=== PATIENT | male | born 1985 | race African-American/Black ===

== ENCOUNTER 2018-01-02 17:20 | Emergency (ER) | payer SELFPAY ==
[~2018-01-02] VITALS: Ht 170.2 cm; Wt 78.0 kg
[2018-01-02 18:00] VITALS: BP 125/50
[2018-01-02 18:31] LABS: BILIRUBIN,URINE NEGATIVE (NEG); CLARITY,URINE CLEAR; COLOR,URINE YELLOW; NITRITE,URINE NEGATIVE (NEG); PROTEIN,URINE NEGATIVE (NEG-TRACE)
[2018-01-02 18:43] LABS: BACTERIA,URINE 0 /HPF (0-FEW); RBC,URINE 0 /HPF (0-2)
[2018-01-02] MEDS ORDERED: cefTRIAXone IM 250 MG VIAL IM ONE (19:00)
[2018-01-02] MEDS ORDERED: AZITHROMYCIN 250 MG TABLET. PO ONE (19:00)
[2018-01-02] MEDS ORDERED: CIPR500T94 PO (19:17)
--- NOTE | 2018-01-02 19:18 | PHYS DOC ---
Past Medical History Past Medical History: No Pertinent History Past Surgical History: No Surgical History Alcohol Use: Occasionally Drug Use: Marijuana Adult General Chief Complaint Chief Complaint: ABDOMINAL PAIN HPI HPI Patient is a 32 year old Male who presents with sore began having mid lower Ivan pain and burning with urination. He states he does have some concerns for STDs. He denies any penile discharge. Patient denies any blood in his urine , fever, back pain. He denies any nausea or vomiting. Rates his pain a 5 out of 10. States it at times it feels like a stabbing pain in his lower abdomen. He has no known drug allergies. States he has had a urinary tract infection before and this is what it felt like. Review of Systems Review of Systems Constitutional: Denies fever or chills [] Eyes: Denies change in visual acuity, redness, or eye pain [] HENT: Denies nasal congestion or sore throat [] Respiratory: Denies cough or shortness of breath [] Cardiovascular: No additional information not addressed in HPI [] GI: Low mid abdominal pain, denies nausea, vomiting, bloody stools or diarrhea [ ] : dysuria. Denies hematuria [] Musculoskeletal: Denies back pain or joint pain [] Integument: Denies rash or skin lesions [] Neurologic: Denies headache, focal weakness or sensory changes [] All other systems were reviewed and found to be within normal limits, except as documented in this note. Current Medications Current Medications Current Medications Medications (Trade) Dose Ordered Sig/Jaison Start Time Stop Time Status Last Admin Dose Admin Azithromycin (Zithromax) 1,000 mg 1X ONCE 01/02/18 19:00 01/02/18 19:01 DC 01/02/18 19:02 1,000 MG Ceftriaxone Sodium (Rocephin Im) 250 mg 1X ONCE 01/02/18 19:00 01/02/18 19:01 DC 01/02/18 19:03 250 MG Allergies Allergies Allergies Coded Allergies Type Severity Reaction Last Updated Verified No Known Drug Allergies 01/02/18 No Physical Exam Physical Exam Constitutional: Well developed, well nourished, no acute distress, non-toxic appearance. [] HENT: Normocephalic, atraumatic, bilateral external ears normal, oropharynx moist, no oral exudates, nose normal. [] Eyes: PERRLA, EOMI, conjunctiva normal, no discharge. [] Neck: Normal range of motion, no tenderness, supple, no stridor. [] Cardiovascular:Heart rate regular rhythm, no murmur [] Lungs & Thorax: Bilateral breath sounds clear to auscultation [] Abdomen: Bowel sounds normal, soft, low mid tenderness, no masses, no pulsatile masses. [] Skin: Warm, dry, no erythema, no rash. [] Back: No tenderness, no CVA tenderness. [] Extremities: No tenderness, no cyanosis, no clubbing, ROM intact, no edema. [] Neurologic: Alert and oriented X 3, normal motor function, normal sensory function, no focal deficits noted. [] Psychologic: Affect normal, judgement normal, mood normal. [] Current Patient Data Vital Signs Vital Signs Date Time Temp Pulse Resp B/P (MAP) Pulse Ox O2 Delivery O2 Flow Rate FiO2 01/02/18 18:00 97.9 71 16 125/50 (75) 98 Room Air 97.9 Lab Values Laboratory Tests Test 01/02/18 18:19 Urine Collection Type Unknown Urine Color Yellow Urine Clarity Clear Urine pH 6.0 Urine Specific Ney 1.025 Urine Protein Negative mg/dL (NEG-TRACE) Urine Glucose (UA) Negative mg/dL (NEG) Urine Ketones (Stick) Negative mg/dL (NEG) Urine Blood Negative (NEG) Urine Nitrite Negative (NEG) Urine Bilirubin Negative (NEG) Urine Urobilinogen Dipstick 1.0 mg/dL (0.2 mg/dL) Urine Leukocyte Esterase Trace (NEG) Urine RBC 0 /HPF (0-2) Urine WBC 1-4 /HPF (0-4) Urine Bacteria 0 /HPF (0-FEW) Urine Mucus Slight /LPF EKG EKG [] Radiology/Procedures Radiology/Procedures [] Course & Med Decision Making Course & Med Decision Making Patient is a 32 year old Male who presents with sore began having mid lower Ivan pain and burning with urination. He states he does have some concerns for STDs. He denies any penile discharge. Patient denies any blood in his urine , fever, back pain. He denies any nausea or vomiting. Rates his pain a 5 out of 10. States it at times it feels like a stabbing pain in his lower abdomen. He has no known drug allergies. States he has had a urinary tract infection before and this is what it felt like. Alert and oriented. Skin is pink warm and dry. Abdomen is soft and slightly tender with palpation to low mid abdominal area. Patient denies any groin pain. Patient's penis has no lesions or drainage seen. Urine shows some leukocytes and white blood cells. Patient states he does want to be treated for STDs. Patient is treated prophylactically for STDs and Chlamydia gonorrhea urine is sent off. His urinalysis shows some slight infection so patient be treated for UTI. [] Dragon Disclaimer Dragon Disclaimer This electronic medical record was generated, in whole or in part, using a voice recognition dictation system. Departure Departure Impression: Primary Impression: Urinary tract infection Additional Impression: Sexually transmitted disease Disposition: HOME, SELF-CARE Condition: STABLE Referrals: NO PCP (PCP) Patient Instructions: Sexually Transmitted Disease, Urinary Tract Infection Additional Instructions: OB primary care. Take medications as prescribed. Scripts Ciprofloxacin Hcl (CIPRO) 500 Mg Tablet 1 TAB PO BID, #14 TAB Prov: FRAN SHAHID APRN 01/02/18 Problem Qualifiers Primary Impression: Urinary tract infection Urinary tract infection type: site unspecified Hematuria presence: without hematuria Qualified Codes: N39.0 - Urinary tract infection, site not specified FRAN SHAHID APRN Jan 02, 2018 19:18
== END 2018-01-02 19:38 | disposition home or self-care (01) ==
LOC: ER 17:20
DX: N39.0 Urinary tract infection, site not specified (principal); Z20.2 Contact with and (suspected) exposure to infections with a predominantly sexual mode of transmission
CPT/HCPCS: 81001; 87086; 87491; 87591; 96372; 99283; J0696; Q0144

== ENCOUNTER 2018-11-04 13:26 | Emergency (ER) | payer OTHER ==
[~2018-11-04] VITALS: Ht 172.7 cm; Wt 78.0 kg
[~2018-11-04 13:26] MED LIST: CIPR500T94 PO
[2018-11-04 13:38] VITALS: BP 140/85
[2018-11-04] MEDS ORDERED: LIDOCAINE 1% PF 2 ML VIAL. INJ ONE (14:15)
[2018-11-04] MEDS ORDERED: AZITHROMYCIN 250 MG TABLET. PO ONE (14:15)
[2018-11-04] MEDS ORDERED: cefTRIAXone IM 250 MG VIAL IM ONE (14:15)
[2018-11-04] MEDS ORDERED: HYDROcodone/APAP 5/325MG 1 TAB TABLET PO ONE (15:30)
[2018-11-04] MEDS ORDERED: HYDR-2761 PO (15:39)
[2018-11-04] MEDS ORDERED: SULF1TAB24 PO (15:39)
--- NOTE | 2018-11-04 15:40 | PHYS DOC ---
Past Medical History Past Medical History: No Pertinent History Past Surgical History: No Surgical History Alcohol Use: Occasionally Drug Use: Marijuana Adult General Chief Complaint Chief Complaint: INSECT BITE HPI HPI Patient is a 33 year old AA male who presents to the ER with complaints of a red tender area to his right buttock for the last week. The area opened up last night and drained some white pus. Pt states that the affected area is now firm, warm, and tender to touch. He also reports noticing some abnormal penile discharge since last night and reports concern of a possible sexually transmitted infection. He admits to some dysuria since last night. He denies any fever, hematuria, abdominal pain, back pain, or difficulty voiding. He currently rates his pain a 10/10 on the pain scale, he denies any alleviating factors, he reports increased pain with palpation of the area. Review of Systems Review of Systems Constitutional: Denies fever or chills [] Eyes: Denies change in visual acuity, redness, or eye pain [] HENT: Denies nasal congestion or sore throat [] Respiratory: Denies cough or shortness of breath [] Cardiovascular: No additional information not addressed in HPI [] GI: Denies abdominal pain, nausea, vomiting, or diarrhea [] : See HPI Musculoskeletal: Denies back pain or joint pain [] Integument: See HPI Neurologic: Denies headache Complete systems were reviewed and found to be within normal limits, except as documented in this note. Current Medications Current Medications Current Medications Medications (Trade) Dose Ordered Sig/Jaison Start Time Stop Time Status Last Admin Dose Admin Acetaminophen/ Hydrocodone Bitart (Lortab 5/325) 1 tab 1X ONCE 11/04/18 15:30 11/04/18 15:31 DC 11/04/18 15:39 1 TAB Azithromycin (Zithromax) 1,000 mg 1X ONCE 11/04/18 14:15 11/04/18 14:16 DC 11/04/18 14:52 1,000 MG Ceftriaxone Sodium (Rocephin Im) 250 mg 1X ONCE 11/04/18 14:15 11/04/18 14:16 DC 11/04/18 14:52 250 MG Lidocaine HCl (Xylocaine-Mpf 1% 2ml Vial) 4 ml 1X ONCE 11/04/18 14:15 11/04/18 14:16 DC 9/29/19 14:52 4 ML Allergies Allergies Allergies Coded Allergies Type Severity Reaction Last Updated Verified No Known Drug Allergies 01/02/18 No Physical Exam Physical Exam Constitutional: Well developed, well nourished, no acute distress, non-toxic appearance. [] HENT: Normocephalic, atraumatic, bilateral external ears normal, nose normal. [] Eyes: PERRLA, EOMI, conjunctiva normal, no discharge. [] Neck: Normal range of motion, no tenderness, supple, no stridor. [] Cardiovascular:Heart rate regular rhythm, no murmur [] Lungs & Thorax: Respirations even and unlabored, no retractions, no respiratory distress Abdomen: soft, no tenderness, no masses, no pulsatile masses. [] Skin: Warm, dry; firm, erythemic, warm, tender area noted to right buttock was centralized punctum consistent with abscess and cellulitis Back: No tenderness, no CVA tenderness. [] Extremities: No cyanosis, no clubbing, ROM intact, no edema. [] Neurologic: Alert and oriented X 3, no focal deficits noted. [] Psychologic: Affect normal, judgement normal, mood normal. [] Current Patient Data Vital Signs Vital Signs Date Time Temp Pulse Resp B/P (MAP) Pulse Ox O2 Delivery O2 Flow Rate FiO2 11/04/18 15:39 18 99 Room Air 11/04/18 13:38 98.3 96 140/85 (103) 98.3 EKG EKG [] Radiology/Procedures Radiology/Procedures [] Course & Med Decision Making Course & Med Decision Making Pertinent Labs and Imaging studies reviewed. (See chart for details) dx: Right buttock abscess, suspected sexually transmitted infection Patient was treated prophylactically with 250 mg of IM Rocephin, and 1 g of PO Zithromax. Patient was instructed to avoid having intercourse until the results of gonorrhea and chlamydia testing are available, patient was notified that these results would not be available for 48 hours. If one or both of these tests is positive, patient needs to refrain from intercourse for approximately 1 week following the treatment of any current partners. I&D of abscess as documented. Patient was prescribed Bactrim and hydrocodone. Wound recheck in 48 hours, return sooner if fever develops or symptoms worsen. Patient verbalized an understanding of home care, medications, follow-up, and return to ED instructions and was in agreement with the plan of care. [] Dragon Disclaimer Dragon Disclaimer This electronic medical record was generated, in whole or in part, using a voice recognition dictation system. Departure Departure Impression: Primary Impression: Abscess of left buttock Additional Impressions: Contact with and (suspected) exposure to infections with a predominantly sexual mode of transmission Abnormal penile discharge, without blood Disposition: 01 HOME, SELF-CARE Condition: STABLE Referrals: NO PCP (PCP) Patient Instructions: Abscess, Care After, Sexually Transmitted Disease, [id number] Additional Instructions: Recommend that you go to your local health department for comprehensive sexually transmitted disease testing. You have been treated for a suspected gonorrhea and chlamydia. Avoid having intercourse until the results of gonorrhea and chlamydia testing are available, these results will not be available for 48 hours. If one or both of these tests is positive, you need to refrain from intercourse for approximately 1 week following the treatment of any current partners. Fill the prescription(s) and use as directed. Leave the Dressing that was placed in the ER in place for the next 24 hours, then change the dressing twice daily and apply antibiotic ointment as needed. You may apply warm, moist packs as needed to the area to help decrease discomfort. Follow up with your primary care doctor or return to the ER in 48 hours to have wound rechecked. Return to the ER sooner if your symptoms worsen or you develop a fever. Scripts Sulfamethoxazole/Trimethoprim (BACTRIM DS TABLET) 1 Each Tablet 1 TAB PO BID, #14 TAB 0 Refills Prov: IMELDA LATIF FORMAL WAITER/WAITRESS 11/04/18 Hydrocodone Bit/Acetaminophen (HYDROCODONE-APAP 5-325 ) 1 Tab Tablet 1 TAB PO PRN Q6HRS PRN for PAIN for 2 Days, #8 TAB 0 Refills Prov: IMELDA LATIF FORMAL WAITER/WAITRESS 11/04/18 Incision and Drainage Incision and Drainage : Site: R buttock Blade Size: 11 I & D Procedure: betadine prep, gauze wick placed (1/2 " iodoform gauze) Progress 1% lidocaine was injected into the abscess site. An #11 blade scalpel was used t o make an incision over the punctum. A large amount of bloody pus was expressed from the site. The cavity was explored with the mark anthony forceps and irrigated with 200 ml of NS. The wound was then packed with 1/2" iodoform gauze and a bandage was applied by nurse following procedure. Pt tolerated procedure well, minimal blood loss, no complications. Plan for wound reevaluation and packing removal in 48 hours. Problem Qualifiers IMELDA LATIF APRN Nov 04, 2018 15:40
== END 2018-11-04 15:45 | disposition home or self-care (01) ==
LOC: ER 13:26
DX: L02.31 Cutaneous abscess of buttock (principal); R36.9 Urethral discharge, unspecified; Z20.2 Contact with and (suspected) exposure to infections with a predominantly sexual mode of transmission
CPT/HCPCS: 10060; 99283; J0696; Q0144